=== PATIENT | male | born 1955 | race Caucasian/White ===

== ENCOUNTER 2017-05-19 15:03 | Emergency (ER) | payer MEDICARE | END 2017-05-19 16:14 | disposition left against medical advice (07) | LOC: ED 15:03 | DX: Z53.21 Procedure and treatment not carried out due to patient leaving prior to being seen by health care provider (principal) ==

== ENCOUNTER 2021-08-06 00:48 | Emergency (ER) | payer MEDICARE ==
[~2021-08-06] VITALS: Ht 170.2 cm; Wt 68.0 kg
--- OUTSIDE RECORDS SUMMARY | 2021-08-06 00:50 | XMS ---
PreManage Notification: SEVERO WAYNE Security Afternoon Nanny Events No recent Security Events currently on file CRITERIA MET - 6 ED Visits in 6 Months - Group Notification - [facility] - 3 Facilities in 90 Days - [facility] - 2 Visits in 30 Days CARE PROVIDERS There are no care providers on record at this time. Kaur has no Care Guidelines for this patient. Mallory VISIT COUNT (12 MO.) [address] TOTAL 17 NOTE: Visits indicate total known visits. ED/C VISIT TRACKING (12 MO.) 08/06/2021 00:48 [facility] TYPE: Emergency COMPLAINT: - MEDICAL CLEARANCE 07/31/2021 13:27 [facility] TYPE: Emergency DIAGNOSES: - Shortness of Breath - SOB, weakness - Dyspnea, unspecified 07/18/2021 08:26 [facility] TYPE: Emergency DIAGNOSES: - Pneumonia, unspecified organism - Chest Pain - Pneumonia, unspecified organism - Dyspnea, unspecified - Unspecified atrial fibrillation - Chronic obstructive pulmonary disease, unspecified - Unspecified atrial fibrillation - CP, SOB - Sepsis, unspecified organism - Shortness of Breath 07/17/2021 18:38 [facility] [place] TYPE: Emergency DIAGNOSES: - Suicidal ideations - NOT FEELING WELL - Alcohol use, unspecified with intoxication, uncomplicated 07/14/2021 20:21 [facility] [place] TYPE: Emergency DIAGNOSES: - MED REFILL - Alcohol use, unspecified with intoxication, uncomplicated 06/30/2021 03:06 [facility] [place] TYPE: Emergency DIAGNOSES: - Shortness of Breath - cough - Pneumonia, unspecified organism [facility] DIAGNOSES: - Acute kidney failure, unspecified - Schizoaffective disorder, bipolar type - Multiple subsegmental pulmonary emboli without acute cor pulmonale - Chest Pain - weak,SOB, chest and leg pain - Other pulmonary embolism without acute cor pulmonale - Bipolar disorder, unspecified 06/16/2021 11[facility] DIAGNOSES: - Unspecified fall, initial encounter - Other pulmonary embolism without acute cor pulmonale - Unspecified fall, initial encounter - Flu Like Symptoms - poss covid 01/04/2021 10:[facility] TYPE: Emergency DIAGNOSES: 0. EMS MIGRAINE 01/02/2021 19:[facility] TYPE: Emergency DIAGNOSES: 0. ABNORMAL LABS 12/01/2020 16:06 [facility] TYPE: Emergency DIAGNOSES: 0. EMS ETOH WITHDRAWLS 2020 14:04 [facility] TYPE: Emergency DIAGNOSES: - Alcohol abuse, uncomplicated - Suicidal ideations - Suicidal - Alcohol use, unspecified with intoxication, unspecified 10/21/2020 07:29 [facility] [place] TYPE: Emergency DIAGNOSES: - RIB PAIN - Unspecified injury of thorax, initial encounter 09/20/2020 10:27 [facility] TYPE: Emergency COMPLAINT: - MEDICAL SCREENING 09/05/2020 16:33 [facility] [place] TYPE: Emergency DIAGNOSES: - Alcohol dependence, uncomplicated - CHEST PAIN - Multiple subsegmental pulmonary emboli without acute cor pulmonale - Alcohol dependence with intoxication delirium - Migraine without aura, not intractable, without status migrainosus 08/30/2020 07:18 [facility] [place] TYPE: Emergency DIAGNOSES: - Alcohol use, unspecified with intoxication, uncomplicated - INTOXICATED - Alcohol dependence, uncomplicated 08/22/2020 11:40 [facility] [place] TYPE: Emergency DIAGNOSES: - Hypocalcemia - Anemia, unspecified - UNRESPONSIVE - Hypotension, unspecified - Alcohol use, unspecified with intoxication, uncomplicated INPATIENT VISIT TRACKING (12 MO.) [facility] DIAGNOSES: - Iron deficiency anemia, unspecified - Pneumonia, unspecified organism - Chronic obstructive pulmonary disease, unspecified - Dyspnea, unspecified - Unspecified atrial fibrillation - Sepsis, unspecified organism - Pneumonia, unspecified organism - Unspecified atrial fibrillation 06/30/2021 03:06 [facility] DIAGNOSES: - Post-traumatic stress disorder, unspecified - Acute respiratory failure with hypoxia - Insomnia, unspecified - Bipolar disorder, unspecified - Pneumonia, unspecified organism - Other toxic encephalopathy - Multiple subsegmental pulmonary emboli without acute cor pulmonale - Unspecified foreign body in respiratory tract, part unspecified causing other injury, initial encounter - Tobacco use - Alcohol abuse, uncomplicated - Other malaise - Alcohol use, unspecified with withdrawal, unspecified - Other chronic pain - Schizoaffective disorder, unspecified - Other pulmonary embolism without acute cor pulmonale - Sepsis, unspecified organism [facility] DIAGNOSES: 0. ALCOHOL WITHDRAWL 08/22/2020 11:40 [facility] [place] TYPE: Medical Surgical DIAGNOSES: - Hypocalcemia - Anemia, unspecified - Alcohol use, unspecified with intoxication, uncomplicated - Hypotension, unspecified [email or web address]
[2021-08-06] MEDS ORDERED: LISINOPRIL20 MG PO (01:07)
[2021-08-06] MEDS ORDERED: ZOLOFT100 MG PO (01:08)
[2021-08-06] MEDS ORDERED: LYRICA300 MG PO (01:08)
[2021-08-06] MEDS ORDERED: SEROQUEL400 MG PO (01:10)
[2021-08-06] MEDS ORDERED: ASPIRIN81 MG PO (01:10)
--- NOTE | 2021-08-07 12:36 | EKG ---
[facility] [address] [place] [address] Signed Normal sinus rhythm Minimal voltage criteria for LVH, may be normal variant ( Sokolow-Vidales ) Septal infarct , age undetermined Abnormal ECG No previous ECGs available Confirmed by WHITNEY CARMEN MD ([id number]) on 08/07/2021 12:36:39 PM Electronically Signed By: WHITNEY CARMEN MD 08/07/21 1236 PATIENT NAME: SEVERO WAYNE Jake Electrocardiogram DATE OF : 53 PHYSICIAN: WHITNEY CARMEN MD REPORT #: [id number] REPORT IS CONFIDENTIAL AND NOT TO BE RELEASED WITHOUT AUTHORIZATION
== END 2021-08-07 14:39 | disposition home or self-care (01) ==
LOC: ED 00:48
DX: U07.1 COVID-19 (principal); R45.851 Suicidal ideations; I10 Essential (primary) hypertension; E78.5 Hyperlipidemia, unspecified; Z79.899 Other long term (current) drug therapy; Z79.82 Long term (current) use of aspirin
CPT/HCPCS: 36415; 70498; 72125; 80053; 81001; 84443; 85025; 93005; 93010; 99285-25; A9270; C9803; G0480; J1885; J2270; U0003

== ENCOUNTER 2021-10-30 10:15 | Emergency (ER) | payer MEDICARE ==
[~2021-10-30] VITALS: Ht 170.2 cm; Wt 54.4 kg
[~2021-10-30 10:15] MED LIST: ASPIRIN81 MG PO; LISINOPRIL20 MG PO; LYRICA300 MG PO; SEROQUEL400 MG PO; ZOLOFT100 MG PO
--- OUTSIDE RECORDS SUMMARY | 2021-10-30 10:22 | XMS ---
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 E.Luca. VISIT COUNT (12 MO.) 3 [facility] TOTAL 13 NOTE: Visits indicate total known visits. ED/C VISIT TRACKING (12 MO.) 10/30/2021 10:16 [facility] TYPE: Emergency COMPLAINT: - JAW INJURY 08/06/2021 00:48 [facility] TYPE: Emergency COMPLAINT: - MEDICAL CLEARANCE DIAGNOSES: - Hyperlipidemia, unspecified - Suicidal ideations - [facility] (current) use of aspirin - Essential (primary) hypertension - COVID-19 - Other [facility]dc (current) drug therapy 07/31/2021 13:27 [facility] [place] [facility] TYPE: Emergency DIAGNOSES: - Shortness of Breath - SOB, weakness - Dyspnea, unspecified 07/18/2021 08:26 [facility] DIAGNOSES: - Pneumonia, unspecified organism - Chest Pain - Pneumonia, unspecified organism - Dyspnea, unspecified - Unspecified atrial fibrillation - Chronic obstructive pulmonary disease, unspecified - Unspecified atrial fibrillation - CP, SOB - Sepsis, unspecified organism - Shortness of Breath 07/17/2021 18:38 [facility] [place] TYPE: Emergency DIAGNOSES: - Suicidal ideations - NOT FEELING WELL - Alcohol use, unspecified with intoxication, uncomplicated 07/14/2021 20:21 [facility] [place] TYPE: Emergency DIAGNOSES: - MED REFILL - Alcohol use, unspecified with intoxication, uncomplicated 06/30/2021 03:06 [facility] TYPE: Emergency DIAGNOSES: - Shortness of Breath - cough - Pneumonia, unspecified organism 06/27/2021 15:57 [facility] DIAGNOSES: - Acute kidney failure, unspecified - Schizoaffective disorder, bipolar type - Multiple subsegmental pulmonary emboli without acute cor pulmonale - Chest Pain - weak,SOB, chest and leg pain - Other pulmonary embolism without acute cor pulmonale - Bipolar disorder, unspecified 06/16/2021 11:17 [facility] DIAGNOSES: - Unspecified fall, [...] DIAGNOSES: 0. EMS ETOH WITHDRAWLS 2020 14:04 [facility] [place] TYPE: Emergency DIAGNOSES: - Alcohol abuse, uncomplicated - Suicidal ideations - Suicidal - Alcohol use, unspecified with intoxication, unspecified INPATIENT VISIT TRACKING (12 MO.) 07/18/2021 08:26 [facility]: [facility] DIAGNOSES: - Iron deficiency anemia, unspecified - Pneumonia, unspecified organism - Chronic obstructive pulmonary disease, unspecified - Dyspnea, unspecified - Unspecified atrial fibrillation - Sepsis, unspecified organism - Pneumonia, unspecified organism - Unspecified atrial fibrillation 06/30/2021 03:06 [facility] [place] [facility] TYPE: Surgical Services DIAGNOSES: - Post-traumatic stress [...] pulmonale - Sepsis, unspecified organism 12/01/2020 23:[facility] TYPE: Internal Medicine DIAGNOSES: 0. ALCOHOL WITHDRAWL [email or web address]
[2021-10-30] MEDS ORDERED: HYDROCODON-ACE1 EA11 PO (15:51)
[2021-10-30] MEDS ORDERED: CEPHALEXIN500 M1 PO (15:51)
== END 2021-10-30 16:59 | disposition home or self-care (01) ==
LOC: ED 10:15
DX: S02.602A Fracture of unspecified part of body of left mandible, initial encounter for closed fracture (principal); W01.190A Fall on same level from slipping, tripping and stumbling with subsequent striking against furniture, initial encounter; I10 Essential (primary) hypertension
CPT/HCPCS: 70486; 72125; A9270

== ENCOUNTER 2021-11-15 18:49 | Emergency (ER) | payer OTHER ==
[~2021-11-15] VITALS: Ht 170.2 cm; Wt 54.4 kg
[~2021-11-15 18:49] MED LIST changes: +CEPHALEXIN500 M1 PO; +HYDROCODON-ACE1 EA11 PO
--- OUTSIDE RECORDS SUMMARY | 2021-11-15 18:52 | XMS ---
PreManage Notification: SEVERO WAYNE Security Registry Np Events No recent Security Events currently on file CRITERIA MET - Group Notification - 6 ED Visits in 6 Months - [facility] - 3 Facilities in 90 Days - [facility] - 2 Visits in 30 Days CARE PROVIDERS ALBERT DREW Internal Medicine Current PHONE: [phone] Kaur has no Care Guidelines for this patient. Cooper.Vira VISIT COUNT (12 MO.) 3 [facility] 1 [facility] 5 [facility] 3 [facility] 4 [facility] TOTAL 16 NOTE: Visits indicate total known visits. ED/UCC VISIT TRACKING (12 MO.) 11/15/2021 18:[address] [facility] TYPE: Emergency COMPLAINT: - LOW BP 11/09/2021 20:[facility] TYPE: Emergency COMPLAINT: - MEDICAL CLEARANCE DIAGNOSES: - Fracture of angle of left mandible, initial encounter for closed fracture - Jaw Pain - MEDICAL CLEARANCE 11/04/2021 21:56 [facility] TYPE: Emergency COMPLAINT: - broken jaw DIAGNOSES: - Fracture of angle of left mandible, initial encounter for closed fracture - broken jaw - Jaw Pain 10/30/2021 10:16 [facility] TYPE: Emergency COMPLAINT: - JAW INJURY DIAGNOSES: - Fall on same level from slipping, tripping and stumbling with subsequent striking against furniture, initial encounter - Fracture of unspecified part of body of left mandible, initial encounter for closed fracture - Essential (primary) hypertension 08/06/2021 00:48 [facility] TYPE: Emergency COMPLAINT: - MEDICAL CLEARANCE DIAGNOSES: - Hyperlipidemia, unspecified - Suicidal ideations - terminal makeup operator (current) use of aspirin - Essential (primary) hypertension - COVID-19 - Other jail (current) drug therapy 07/31/2021 13:27 [facility] TYPE: Emergency DIAGNOSES: - Shortness of Breath - SOB, weakness - Dyspnea, unspecified 07/18/2021 08:26 [facility] DIAGNOSES: - Pneumonia, unspecified organism - Chest Pain - Pneumonia, unspecified organism - Dyspnea, unspecified - Unspecified atrial fibrillation - Chronic obstructive pulmonary disease, unspecified - Unspecified atrial fibrillation - CP, SOB - Sepsis, unspecified organism - Shortness of Breath 07/17/2021 18:38 [facility] [place] TYPE: Emergency DIAGNOSES: - Suicidal ideations - NOT FEELING WELL - Alcohol use, unspecified with intoxication, uncomplicated 07/14/2021 20:21 [facility] [place] TYPE: Emergency DIAGNOSES: - MED REFILL - Alcohol use, unspecified with intoxication, uncomplicated 06/30/2021 03:06 [facility] DIAGNOSES: - Shortness of Breath - cough - Pneumonia, unspecified organism 06/27/2021 15:57 [facility] DIAGNOSES: - Acute kidney failure, unspecified - Schizoaffective disorder, bipolar type - Multiple subsegmental pulmonary emboli without acute cor pulmonale - Chest Pain - weak,SOB, chest and leg pain - Other pulmonary embolism without acute cor pulmonale - Bipolar disorder, unspecified 06/16/2021 11:17 [facility] DIAGNOSES: - Unspecified fall, initial encounter - Other pulmonary embolism without acute cor pulmonale - Unspecified fall, initial encounter - Flu Like Symptoms - poss covid 01/04/2021 10:29 [facility] TYPE: Emergency DIAGNOSES: 0. EMS MIGRAINE 01/02/2021 19:39 [facility] TYPE: Emergency DIAGNOSES: 0. ABNORMAL LABS 12/01/2020 16:06 [place] TYPE: Emergency DIAGNOSES: 0. EMS ETOH WITHDRAWLS 2020 14:04 [facility] TYPE: Emergency DIAGNOSES: - Alcohol abuse, uncomplicated - Suicidal ideations - Suicidal - Alcohol use, unspecified with intoxication, unspecified INPATIENT VISIT TRACKING (12 MO.) 07/18/2021 08:26 [facility] TYPE: Surgical Services DIAGNOSES: - Iron deficiency anemia, unspecified - Pneumonia, unspecified organism - Chronic obstructive pulmonary disease, unspecified - Dyspnea, unspecified - Unspecified atrial fibrillation - Sepsis, unspecified organism - Pneumonia, unspecified organism - Unspecified atrial fibrillation 06/30/2021 03:06 [facility] DIAGNOSES: - Post-traumatic [...] TYPE: Internal Medicine DIAGNOSES: 0. ALCOHOL WITHDRAWL [email or web address]
[2021-11-16] MEDS ORDERED: AMOX TR-K CLV1 EAC1 PO (00:05)
--- NOTE | 2021-11-16 14:04 | EKG ---
[facility] [address] [place], [place] [address] Signed Normal sinus rhythm Normal ECG No previous ECGs available Confirmed by ISABEL HAYES MD ([id number]) on 11/16/2021 2:04:38 PM Electronically Signed By: ISABEL HAYES MD 11/16/21 1404 PATIENT NAME: SEVERO WAYNE Jake Electrocardiogram DATE OF : 53 PHYSICIAN: ISABEL HAYES MD REPORT #: [id number] REPORT IS CONFIDENTIAL AND NOT TO BE RELEASED WITHOUT AUTHORIZATION
== END 2021-11-16 00:51 | disposition home or self-care (01) ==
LOC: ED 18:49
DX: T50.7X1A Poisoning by analeptics and opioid receptor antagonists, accidental (unintentional), initial encounter (principal); I10 Essential (primary) hypertension; E78.5 Hyperlipidemia, unspecified; Z79.899 Other long term (current) drug therapy; Z79.82 Long term (current) use of aspirin; Z20.822 Contact with and (suspected) exposure to COVID-19
CPT/HCPCS: 70450; 71045; 80053; 81001; 83605; 83690; 84132; 84484; 85007; 85025; 85060; 87502; 93005; 93010; 94640; 96365; 96375; 99285-25; A9270; G0480; J0696; J2310; J2930; J7121; U0003